=== PATIENT | male | born 1990 | race Hispanic/Latino ===

== ENCOUNTER 2017-03-02 18:10 | Emergency (ER) | payer OTHER ==
[~2017-03-02] VITALS: Ht 180.3 cm; Wt 69.5 kg
[~2017-03-02 18:10] MED LIST: PROVENTIL0.083 % IN; ZITHROMAX500 MG OR
[2017-03-02] MEDS ORDERED: FLEXERIL PO (19:50)
[2017-03-02] MEDS ORDERED: NAPROSYN500 MG PO (19:50)
[2017-03-02 20:55] VITALS: BP 123/69
== END 2017-03-02 20:55 | disposition home or self-care (01) | DRG 605 ==
LOC: ED 18:10
DX: S50.12XA Contusion of left forearm, initial encounter (principal); X58.XXXA Exposure to other specified factors, initial encounter; Y93.9 Activity, unspecified; Y92.9 Unspecified place or not applicable

== ENCOUNTER 2017-07-29 09:46 | Emergency (ER) | payer OTHER ==
[~2017-07-29] VITALS: Ht 180.3 cm; Wt 70.0 kg
[~2017-07-29 09:46] MED LIST changes: +FLEXERIL PO; +NAPROSYN500 MG PO
[2017-07-29] MEDS ORDERED: MIRTAZAPINE45 MG PO (10:14)
[2017-07-29] MEDS ORDERED: XANAX1 MG PO (10:14)
[2017-07-29 10:18] LABS: HEMATOCRIT 45.6 % (39.0-50.0); HEMOGLOBIN 15.2 g/dl (14.0-18.0); IMMATURE GRANULOCYTES 0.7 % (0.0-1.0); MEAN CELL VOLUME 92.5 fL CALC (80.0-100.0); MEAN CORPUSCULAR HGB 30.8 pG CALC (26.0-32.0); MEAN CORPUSCULAR HGB CONC 33.3 g/L CALC (32.0-36.0); NEUT# 6.59 thou/uL (1.82-7.42); RED BLOOD COUNT 4.93 mill/uL (4.70-6.10); RED CELL DISTRI WIDTH 13.2 % (11.5-15.5)
[2017-07-29 10:30] LABS: ALKALINE PHOSPHATASE 55 u/l (38-126); ANION GAP 19 (6-22 (CALC)); BILIRUBIN, TOTAL 0.6 mg/dL (0.0-1.4); BUN 11 mg/dL (9-20); BUN/CREATININE RATIO 13 (12-20 (CALC)); CALCIUM 9.8 mg/dL (8.4-10.2); CARBON DIOXIDE 27 mmol/l (22-30); CHLORIDE 103 mmol/l (95-108); CREATININE 0.9 mg/dL (0.7-1.3); GFR > 60 ML/MIN (>=60 (CALC)); GFR FOR AFR.AMER. > 60 ML/MIN (>=60 (CALC)); GLUCOSE 80 mg/dL (75-110); POTASSIUM 4.6 mmol/l (3.5-5.1); SGOT/AST 24 u/l (17-59); SGPT/ALT 33 u/l (21-72); SODIUM 144 mmol/l (137-146); TOTAL PROTEIN 7.7 g/dL (6.3-8.2)
[2017-07-29 10:41] LABS: MYOGLOBIN 366 ng/mL (0 - 121)
[2017-07-29 10:46] LABS: URINE BILIRUBIN - DIPSTICK NEGATIVE (NEGATIVE); URINE BLOOD DIPSTICK SMALL (NEGATIVE); URINE CLARITY CLEAR; URINE COLOR YELLOW; URINE GLUCOSE - DIPSTICK NEGATIVE (NEGATIVE); URINE KETONE NEGATIVE (NEGATIVE); URINE LEUK ESTERASE NEGATIVE (NEGATIVE); URINE NITRITE - DIPSTICK NEGATIVE (Negative); URINE PH 6.5 (4.5-8.0); URINE PROTEIN - DIPSTICK NEGATIVE (NEG-TRACE); URINE SPECIFIC GRAVITY 1.015; URINE UROBILINOGEN - DIPSTICK 0.2 E.U./dL (0.2)
[2017-07-29 11:04] LABS: BARBITURATES NEGATIVE (NEGATIVE); COCAINE NEGATIVE (NEGATIVE); METHADONE NEGATIVE (NEGATIVE); OXCYCODONE POSITIVE (NEGATIVE); TETRAHYDROCANNABIONOL POSITIVE (NEGATIVE); TRICYLIC ANTIDEPRESSANTS NEGATIVE (NEGATIVE)
[2017-07-29 11:12] LABS: URINE SQUAMOUS EPITHELIAL CELL FEW EPI/hpf (0-FEW)
[2017-07-29 13:46] VITALS: BP 125/65
== END 2017-07-29 13:53 | disposition home or self-care (01) | DRG 101 ==
LOC: ED 09:46
PROVIDERS: Emergency Medicine
DX: R56.9 Unspecified convulsions (principal); F17.210 Nicotine dependence, cigarettes, uncomplicated; M25.511 Pain in right shoulder; Y93.H9 Activity, other involving exterior property and land maintenance, building and construction; Y92.007 Garden or yard of unspecified non-institutional (private) residence as the place of occurrence of the external cause
CPT/HCPCS: Q9967

== ENCOUNTER 2018-06-28 14:48 | Emergency (ER) | payer SELFPAY ==
[~2018-06-28] VITALS: Ht 180.3 cm; Wt 70.9 kg
[~2018-06-28 14:48] MED LIST changes: +MIRTAZAPINE45 MG PO; +XANAX1 MG PO
[2018-06-28 16:35] LABS: IMMATURE GRANULOCYTES 0.2 % (0.0-5.0); MEAN CELL VOLUME 89.4 fL CALC (80.0-100.0); MEAN CORPUSCULAR HGB 30.3 pG CALC (26.0-32.0); MEAN CORPUSCULAR HGB CONC 33.9 g/L CALC (32.0-36.0); NEUT# 6.31 thou/uL (1.82-7.42); RED BLOOD COUNT 4.32 mill/uL (4.70-6.10); RED CELL DISTRI WIDTH 13.7 % (11.5-15.5)
[2018-06-28 16:39] LABS: HEMATOCRIT 38.6 % (39.0-50.0); HEMOGLOBIN 13.1 g/dl (14.0-18.0)
[2018-06-28 16:47] LABS: ALKALINE PHOSPHATASE 55 u/l (38-126); ANION GAP 12 (6-22 (CALC)); BILIRUBIN, TOTAL 0.7 mg/dL (0.0-1.4); BUN 10 mg/dL (9-20); BUN/CREATININE RATIO 15 (12-20 (CALC)); CARBON DIOXIDE 26 mmol/l (22-30); CHLORIDE 107 mmol/l (95-108); CREATININE 0.7 mg/dL (0.7-1.3); GFR > 60 ML/MIN (>=60 (CALC)); GFR FOR AFR.AMER. > 60 ML/MIN (>=60 (CALC)); POTASSIUM 3.9 mmol/l (3.5-5.1); SGOT/AST 22 u/l (17-59); SGPT/ALT 28 u/l (21-72); SODIUM 142 mmol/l (137-146); TOTAL PROTEIN 6.5 g/dL (6.3-8.2)
[2018-06-28 17:46] VITALS: BP 99/50
== END 2018-06-28 16:58 | disposition left against medical advice (07) | DRG 156 ==
LOC: ED 14:48
PROVIDERS: Emergency Medicine
PROC: 09Q1XZZ Repair Left External Ear, External Approach (ICD-10-PCS; principal; 2018-06-28)
DX: S01.312A Laceration without foreign body of left ear, initial encounter (principal); S00.83XA Contusion of other part of head, initial encounter; F41.9 Anxiety disorder, unspecified; F17.210 Nicotine dependence, cigarettes, uncomplicated; Y04.0XXA Assault by unarmed brawl or fight, initial encounter; Y92.009 Unspecified place in unspecified non-institutional (private) residence as the place of occurrence of the external cause; Z91.19 Patient's noncompliance with other medical treatment and regimen

== ENCOUNTER 2019-12-11 | Emergency (ER) | payer SELFPAY ==
[2019-12-11] MEDS ORDERED: TAM75CAP PO ×2 (10:53)
== END 2019-12-11 11:25 | disposition home or self-care (01) | DRG 153 ==
DX: J11.1 Influenza due to unidentified influenza virus with other respiratory manifestations (principal); F17.210 Nicotine dependence, cigarettes, uncomplicated

== ENCOUNTER 2020-05-15 18:16 | Emergency (ER) | payer SELFPAY ==
[~2020-05-15] VITALS: Ht 180.3 cm; Wt 75.0 kg
[~2020-05-15 18:16] MED LIST changes: +TAM75CAP PO
[2020-05-15] MEDS ORDERED: LORTAB 7.57.5 MG PO (19:17)
[2020-05-15] MEDS ORDERED: ACETAMINOP160 MG/5 M PO (19:17)
[2020-05-15] MEDS ORDERED: LORTAB 1010 MG PO (19:18)
[2020-05-15 19:37] LABS: HEMATOCRIT 43.1 % (39.0-50.0); HEMOGLOBIN 14.5 g/dl (14.0-18.0); IMMATURE GRANULOCYTES 0.2 % (0.0-5.0); MEAN CELL VOLUME 86.7 fL CALC (80.0-100.0); MEAN CORPUSCULAR HGB 29.2 pG CALC (26.0-32.0); MEAN CORPUSCULAR HGB CONC 33.6 g/dL CAL (32.0-36.0); NEUT# 4.78 thou/uL (1.82-7.42); RED BLOOD COUNT 4.97 mill/uL (4.70-6.10); RED CELL DISTRI WIDTH 13.5 % (11.5-15.5)
[2020-05-15 19:38] LABS: URINE BLOOD DIPSTICK SMALL (NEGATIVE); URINE COLOR YELLOW; URINE GLUCOSE - DIPSTICK NEGATIVE (NEGATIVE); URINE LEUK ESTERASE NEGATIVE (NEGATIVE); URINE NITRITE - DIPSTICK NEGATIVE (Negative); URINE PROTEIN - DIPSTICK NEGATIVE (NEG-TRACE); URINE UROBILINOGEN - DIPSTICK 0.2 E.U./dL (0.2)
[2020-05-15 19:39] LABS: URINE RBC 0-2 RBC/hpf (0-5); URINE WBC 0-2 WBC/hpf (0-5)
[2020-05-15 19:57] LABS: ALKALINE PHOSPHATASE 55 u/l (38-126); ANION GAP 14 (6-22 (CALC)); BILIRUBIN, TOTAL 0.6 mg/dL (0.0-1.4); BUN 15 mg/dL (9-20); BUN/CREATININE RATIO 21 (12-20 (CALC)); CARBON DIOXIDE 24 mmol/l (22-30); CHLORIDE 101 mmol/l (95-108); CPK 224 u/l (52-200); CREATININE 0.7 mg/dL (0.7-1.3); GFR > 60 ML/MIN (>=60 (CALC)); GFR FOR AFR.AMER. > 60 ML/MIN (>=60 (CALC)); MAGNESIUM 2.1 mg/dL (1.6-2.3); POTASSIUM 3.9 mmol/l (3.5-5.1); SGOT/AST 25 u/l (17-59); SODIUM 135 mmol/l (137-146); TOTAL PROTEIN 7.6 g/dL (6.3-8.2)
[2020-05-15 19:58] LABS: ALBUMIN 5.2 g/dL (3.2-5.0)
[2020-05-15 19:59] LABS: URINE KETONE TRACE mg/dL (NEGATIVE); URINE PH 5.5 (4.5-8.0)
[2020-05-15 20:00] LABS: URINE SPECIFIC GRAVITY >=1.030
[2020-05-15 20:01] LABS: URINE BILIRUBIN - DIPSTICK NEGATIVE (NEGATIVE)
[2020-05-15 20:42] VITALS: BP 114/64
== END 2020-05-15 20:42 | disposition home or self-care (01) | DRG 923 ==
LOC: ED 18:16
PROVIDERS: Family Medicine
DX: T67.5XXA Heat exhaustion, unspecified, initial encounter (principal); F17.210 Nicotine dependence, cigarettes, uncomplicated; X30.XXXA Exposure to excessive natural heat, initial encounter

== ENCOUNTER 2020-09-13 19:02 | Emergency (ER) | payer SELFPAY ==
[~2020-09-13] VITALS: Ht 180.3 cm; Wt 72.0 kg
[~2020-09-13 19:02] MED LIST changes: +ACETAMINOP160 MG/5 M PO; +LORTAB 1010 MG PO; +LORTAB 7.57.5 MG PO
[2020-09-13] MEDS ORDERED: MIRTAZAPINE30 M2 PO (19:52)
[2020-09-13] MEDS ORDERED: BACTRIM DS1 TAB PO (21:21)
[2020-09-13] MEDS ORDERED: GENTAMICIN0.3 % OS (21:21)
[2020-09-13 21:30] VITALS: BP 119/74
== END 2020-09-13 21:30 | disposition home or self-care (01) | DRG 125 ==
LOC: ED 19:02
DX: H00.015 Hordeolum externum left lower eyelid (principal); F41.9 Anxiety disorder, unspecified; J45.909 Unspecified asthma, uncomplicated; F17.200 Nicotine dependence, unspecified, uncomplicated

== ENCOUNTER 2021-05-08 21:16 | Emergency (ER) | payer SELFPAY ==
[~2021-05-08] VITALS: Ht 180.3 cm; Wt 65.0 kg
[~2021-05-08 21:16] MED LIST changes: +BACTRIM DS1 TAB PO; +GENTAMICIN0.3 % OS; +MIRTAZAPINE30 M2 PO
[2021-05-08] MEDS ORDERED: ALPRAZOLAM0.5 MG PO (22:12)
[2021-05-08 22:47] LABS: HEMATOCRIT 41.6 % (39.0-50.0); HEMOGLOBIN 13.8 g/dl (14.0-18.0); IMMATURE GRANULOCYTES 0.2 % (0.0-5.0); MEAN CELL VOLUME 89.5 fL CALC (80.0-100.0); MEAN CORPUSCULAR HGB 29.7 pG CALC (26.0-32.0); MEAN CORPUSCULAR HGB CONC 33.2 g/dL CAL (32.0-36.0); NEUT# 4.07 thou/uL (1.82-7.42); RED BLOOD COUNT 4.65 mill/uL (4.70-6.10); RED CELL DISTRI WIDTH 12.7 % (11.5-15.5)
[2021-05-08 22:58] LABS: ALBUMIN 4.2 g/dL (3.2-5.0); ALKALINE PHOSPHATASE 40 u/l (38-126); ANION GAP 12 (6-22 (CALC)); BUN 9 mg/dL (9-20); BUN/CREATININE RATIO 13 (12-20 (CALC)); CARBON DIOXIDE 26 mmol/l (22-30); CHLORIDE 103 mmol/l (95-108); CREATININE 0.7 mg/dL (0.7-1.3); GFR > 60 ML/MIN (>=60 (CALC)); GFR FOR AFR.AMER. > 60 ML/MIN (>=60 (CALC)); POTASSIUM 3.2 mmol/l (3.5-5.1); SGOT/AST 23 u/l (17-59); SODIUM 138 mmol/l (137-146); TOTAL PROTEIN 6.9 g/dL (6.3-8.2)
[2021-05-08 23:00] VITALS: BP 130/66
[2021-05-08 23:07] LABS: BILIRUBIN, TOTAL 0.3 mg/dL (0.0-1.4)
== END 2021-05-09 01:45 | disposition left against medical advice (07) | DRG 313 ==
LOC: ED 21:16
PROVIDERS: Emergency Medicine
DX: R07.9 Chest pain, unspecified (principal); J45.909 Unspecified asthma, uncomplicated; F41.9 Anxiety disorder, unspecified; F17.200 Nicotine dependence, unspecified, uncomplicated; Z91.19 Patient's noncompliance with other medical treatment and regimen; Z20.822 Contact with and (suspected) exposure to COVID-19

== ENCOUNTER 2021-06-11 23:31 | Emergency (ER) | payer SELFPAY ==
[~2021-06-11 23:31] MED LIST changes: +ALPRAZOLAM0.5 MG PO
[2021-06-12 03:13] VITALS: BP 107/59
== END 2021-06-12 03:26 | disposition home or self-care (01) | DRG 866 ==
LOC: ED 23:31
DX: B34.9 Viral infection, unspecified (principal); F41.9 Anxiety disorder, unspecified; J45.909 Unspecified asthma, uncomplicated; F17.200 Nicotine dependence, unspecified, uncomplicated; Z20.822 Contact with and (suspected) exposure to COVID-19

== ENCOUNTER 2021-06-12 19:31 | Emergency (ER) | payer SELFPAY | END 2021-06-12 20:38 | disposition left against medical advice (07) | DRG 951 | LOC: ED 19:31 → LWOBS 20:38 | DX: Z53.21 Procedure and treatment not carried out due to patient leaving prior to being seen by health care provider (principal) ==

== ENCOUNTER 2021-07-17 02:15 | Emergency (ER) | payer SELFPAY ==
[~2021-07-17] VITALS: Ht 180.3 cm; Wt 68.0 kg
[2021-07-17 02:25] VITALS: BP 122/68
[2021-07-17] MEDS ORDERED: ZPAK PO (04:32)
== END 2021-07-17 05:22 | disposition home or self-care (01) | DRG 153 ==
LOC: ED 02:15
DX: J06.9 Acute upper respiratory infection, unspecified (principal); J45.909 Unspecified asthma, uncomplicated; F41.9 Anxiety disorder, unspecified; F17.200 Nicotine dependence, unspecified, uncomplicated; Z20.822 Contact with and (suspected) exposure to COVID-19

== ENCOUNTER 2022-04-21 10:02 | Emergency (ER) | payer SELFPAY ==
[~2022-04-21] VITALS: Ht 180.3 cm; Wt 75.0 kg
[~2022-04-21 10:02] MED LIST changes: +ZPAK PO
[2022-04-21 10:11] VITALS: BP 135/74
[2022-04-21 10:26] VITALS: BP 135/72
[2022-04-21 10:40] LABS: HEMATOCRIT 45.5 % (39.0-50.0); HEMOGLOBIN 15.7 g/dl (14.0-18.0); IMMATURE GRANULOCYTES 0.1 % (0.0-5.0); MEAN CELL VOLUME 88.3 fL CALC (80.0-100.0); MEAN CORPUSCULAR HGB 30.5 pG CALC (26.0-32.0); MEAN CORPUSCULAR HGB CONC 34.5 g/dL CAL (32.0-36.0); NEUT# 9.27 thou/uL (1.82-7.42); RED BLOOD COUNT 5.15 mill/uL (4.70-6.10); RED CELL DISTRI WIDTH 12.6 % (11.5-15.5)
[2022-04-21 10:54] LABS: ALBUMIN 4.9 g/dL (3.2-5.0); ALKALINE PHOSPHATASE 58 u/l (38-126); ANION GAP 13 (6-22 (CALC)); BUN 10 mg/dL (9-20); BUN/CREATININE RATIO 15 (12-20 (CALC)); CARBON DIOXIDE 26 mmol/l (22-30); CHLORIDE 106 mmol/l (95-108); CREATININE 0.7 mg/dL (0.7-1.3); GFR FOR AFR.AMER. > 60 ML/MIN (>=60 (CALC)); GFR OTHER RACES > 60 ML/MIN (>=60 (CALC)); LIPASE 38 u/l (23-300); POTASSIUM 3.6 mmol/l (3.5-5.1); SGOT/AST 31 u/l (17-59); SODIUM 141 mmol/l (137-146); TOTAL PROTEIN 7.6 g/dL (6.3-8.2)
[2022-04-21 10:57] LABS: BILIRUBIN, TOTAL 0.6 mg/dL (0.0-1.4)
[2022-04-21 11:01] VITALS: BP 109/50
[2022-04-21 13:00] VITALS: BP 130/73
[2022-04-21 13:13] LABS: URINE BILIRUBIN - DIPSTICK NEGATIVE (NEGATIVE); URINE BLOOD DIPSTICK NEGATIVE (NEGATIVE); URINE COLOR YELLOW; URINE GLUCOSE - DIPSTICK NEGATIVE (NEGATIVE); URINE KETONE >=80 mg/dL (NEGATIVE); URINE LEUK ESTERASE NEGATIVE (NEGATIVE); URINE PH 8.5 (4.5-8.0); URINE PROTEIN - DIPSTICK NEGATIVE (NEG-TRACE); URINE SPECIFIC GRAVITY 1.015; URINE UROBILINOGEN - DIPSTICK 0.2 E.U./dL (0.2)
[2022-04-21 13:22] LABS: URINE NITRITE - DIPSTICK NEGATIVE (Negative)
[2022-04-21] MEDS ORDERED: PROTONIX20 M1 PO (13:31)
[2022-04-21] MEDS ORDERED: ZOFRAN4 MG/TAB PO (13:31)
[2022-04-21 13:36] VITALS: BP 130/73
== END 2022-04-21 13:49 | disposition home or self-care (01) | DRG 179 ==
LOC: ED 10:02
PROVIDERS: Family Medicine
DX: U07.1 COVID-19 (principal); R10.11 Right upper quadrant pain; R10.13 Epigastric pain; R11.2 Nausea with vomiting, unspecified; J45.909 Unspecified asthma, uncomplicated; F41.9 Anxiety disorder, unspecified; F17.210 Nicotine dependence, cigarettes, uncomplicated

== ENCOUNTER 2022-05-08 09:45 | Emergency (ER) | payer SELFPAY ==
[~2022-05-08] VITALS: Ht 180.3 cm; Wt 68.0 kg
[~2022-05-08 09:45] MED LIST changes: +PROTONIX20 M1 PO; +ZOFRAN4 MG/TAB PO
[2022-05-08 10:19] LABS: HEMATOCRIT 43.6 % (39.0-50.0); HEMOGLOBIN 14.6 g/dl (14.0-18.0); IMMATURE GRANULOCYTES 0.3 % (0.0-5.0); MEAN CELL VOLUME 91.2 fL CALC (80.0-100.0); MEAN CORPUSCULAR HGB 30.5 pG CALC (26.0-32.0); MEAN CORPUSCULAR HGB CONC 33.5 g/dL CAL (32.0-36.0); NEUT# 10.02 thou/uL (1.82-7.42); RED BLOOD COUNT 4.78 mill/uL (4.70-6.10); RED CELL DISTRI WIDTH 13.1 % (11.5-15.5)
[2022-05-08 10:45] LABS: ALBUMIN 4.4 g/dL (3.2-5.0); ALKALINE PHOSPHATASE 54 u/l (38-126); ANION GAP 14 (6-22 (CALC)); BILIRUBIN, TOTAL 0.6 mg/dL (0.0-1.4); BUN 6 mg/dL (9-20); BUN/CREATININE RATIO 8 (12-20 (CALC)); CARBON DIOXIDE 21 mmol/l (22-30); CHLORIDE 109 mmol/l (95-108); CREATININE 0.8 mg/dL (0.7-1.3); GFR FOR AFR.AMER. > 60 ML/MIN (>=60 (CALC)); GFR OTHER RACES > 60 ML/MIN (>=60 (CALC)); POTASSIUM 3.8 mmol/l (3.5-5.1); SGOT/AST 23 u/l (17-59); SODIUM 140 mmol/l (137-146); TOTAL PROTEIN 7.1 g/dL (6.3-8.2)
[2022-05-08 10:57] LABS: MYOGLOBIN 334 ng/mL (0 - 121)
[2022-05-08] MEDS ORDERED: KEPPRA500 M2 PO (11:59)
[2022-05-08 12:15] VITALS: BP 116/68
== END 2022-05-08 12:25 | disposition home or self-care (01) | DRG 101 ==
LOC: ED 09:45
PROVIDERS: Emergency Medicine
DX: R56.9 Unspecified convulsions (principal); F41.9 Anxiety disorder, unspecified; J45.909 Unspecified asthma, uncomplicated; F17.200 Nicotine dependence, unspecified, uncomplicated
CPT/HCPCS: J1953